=== PATIENT | male | born 1980 | race Two or more races ===

== ENCOUNTER 2018-02-02 19:12 | Emergency (ER) | payer OTHER, SELFPAY ==
[2018-02-02 19:16] VITALS: BP 134/82; PULSE 67; RESP 16; TEMP 36.8; O2SAT 97; BMI 34.9
--- NOTE | 2018-02-02 19:18 | ED.RN ---
CALLED [facility] TO TEST THIS PT PER RN REQUEST, RN SPOKE TO ENDOSCOPY TECHNICAN WHO REQUESTED THIS PT GET TESTED [facility]
--- NOTE | 2018-02-02 19:38 | RAD_ITS ---
STUDY: X-RAY - RIGHT HAND, ATTENTION FIRST FINGER REASON FOR EXAM: Male, 37 years old. Laceration right common TECHNIQUE: 3 view(s) of the finger were obtained. COMPARISON: None. FINDINGS: Normal metacarpal head. Normal metacarpophalangeal joint. Normal proximal phalanx. Normal middle phalanx. Normal distal phalanx. Normal proximal interphalangeal joint. Normal distal interphalangeal joint. RAD/Finger(s) Min 2 Views IMPRESSION: Normal x-ray examination of the finger. Electronically Signed: Jaya Zamorano MD at 20:39 EDT , Service support ,
[2018-02-02] MEDS: HYDROcodone Bitartrate/Apap 5/325 Tablet PO (19:43)
[2018-02-02] MEDS: Cephalexin 250 MG Capsule 500 MG PO (19:43)
--- NOTE | 2018-02-02 20:59 | ED.DCSUM_ITS ---
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 Immunization unknown. No antibiotic allergies. Denies inability to move his thumb. Denies any numbness or tingling. He is presently on no medication. He has no other complaints. Physical Examination: Blood pressure slightly elevated at 134/82. He amputated the distal radial side of his right thumb with nailbed involvement. There is no active bleeding. Extension and flexion intact. Able to ABduct and adductor. Sensation is normal. Capillary refill is normal. There is no subungual hematoma noted. Test Results: Three-view x-ray of the thumb reveals tissue loss with no involvement of the distal phalanx. There is no foreign body noted. Emergency Department Course and Treatment: Wound care, tetanus immunization, cephalexin 500 mg and x-ray Treatment Plan: Cephalexin 500 mg 3 times daily for 5 days, refer to Dr. escobar be plastic/hand surgeon Disposition: Discharged to home with spouse Impression: Amputation distal radial right thumb with nailbed injury initial encounter This note was generated with [employer] dictation software. It may contain incorrect words, spelling, and punctuation that were not noted in review of the chart prior to signing ED Disposition - Plan for ED Patient: Disposition: Home or Assisted Living Chief Complaint: Laceration Instructions: ED Laceration Amputation Finger Tip Open Tx Prescriptions: Cephalexin 500 mg PO TID #14 cap Referrals: Care Physician,No Primary [Primary Care Provider] - Ab Yuan MD [STAFF PHYSICIAN] - 2 Days for wound check
[2018-02-02 22:01] VITALS: BP 128/71; PULSE 69; RESP 16; O2SAT 100
== END 2018-02-02 22:02 | disposition home or self-care (01) ==
PROVIDERS: Emergency Provider Emergency Medicine
DX: S68.021A Partial traumatic metacarpophalangeal amputation of right thumb, initial encounter (principal); W31.2XXA Contact with powered woodworking and forming machines, initial encounter; Y93.9 Activity, unspecified; Y92.9 Unspecified place or not applicable; Y99.9 Unspecified external cause status
CPT/HCPCS: 73140; 99285